=== PATIENT | male | born 1950 | race Two or more races ===

== ENCOUNTER 2024-09-04 14:17 | Outpatient (RCR) | payer OTHER, SELFPAY ==
--- NOTE | 2024-09-04 16:53 | CTCCONSULT_ITS ---
[facility] [address] [place], [place] [address] Consultation Note Date: 09/04/2024 MR#: [id number] Name: RAMON SANCHEZ : 1950 Dx: C61 Malignant neoplasm of prostate Referring physician. [facility]/MD Cortez Roy Reason for consultation. 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 History of Present Illness: Patient is 74-year-old gentleman who states that he had prostatectomy performed by Dr. Juárez in [place] 6 years ago. While told that he was cancer but no adjuvant therapy was felt to be needed. Patient had widespread bone mets at this since 2022 when bone scan of 12/01/2022 showed uptake in entire skeleton hips pelvis ribs sternum and bilateral shoulders, along with very high PSA recently patient has been followed at [facility], who reportedly felt that he merely had a TURP in [place] with no proof of malignancy. Because PSA was still very high PSA 369 on 06/21/2022, patient received monthly Lupron injections along with Xtandi. Due to insurance matter patient had referred to the cancer treatment center here in [place]. Patient states that he has some trouble sleeping alleviated with melatonin and takes OTC meds for pain, though has been prescribed hydrocodone which he does not like to take due to side effects. Past Medical History: History of anemia bladder infection chest pain diabetes kidney stones prostatism Meds Xtandi hydrocodone sertraline hydrochlorothiazide Social History: Patient lives in early marked [place] denies drinking smoking Review of Systems: Physical Exam: General: Tired appearing gentleman in no acute distress HEENT: Atraumatic normocephalic extraocular is intact no oral lesion no cervical or supraclavicular adenopathy CV: Chest clear to auscultation heart regular rate and rhythm ABD: Soft no organomegaly tenderness EXT: No cyanosis clubbing or edema. Assessment:#1. Stage IVb prostate CA with widespread bone mets. #2. Patient feels that prostate was removed which showed early stage cancer with no adjuvant therapy provided 6 years ago in [place]. [facility] note indicates this was was simply a TURP with no malignancy seen. Will attempt to get records from [place]. #3 Receiving for several months Brandon and Jeremy at [facility]. However patient can no longer go there due to insurance reasons #4. PET scan CT abdomen pelvis with new labs. #5. I will see patient again next month. Cc: Paola Steiner MD [facility] Electronically signed by: Roe Lundy MD, DABR 09/04/2024 4:50 PM
== END 2024-09-27 23:59 | disposition home or self-care (01) ==
LOC: SCTC 14:17
PROVIDERS: PCP Family Medicine; Referring Provider Family Medicine; Visit Provider Radiology Therapeutic Radiology
DX: C61 Malignant neoplasm of prostate (principal); C79.51 Secondary malignant neoplasm of bone; Z90.79 Acquired absence of other genital organ(s)
CPT/HCPCS: 99213; G0463

== ENCOUNTER 2024-09-06 18:10 | Emergency (ER) | payer OTHER, SELFPAY ==
--- NOTE | 2024-09-06 18:39 | PD.EDHA ---
ED Headache RME/HPI General Chief Complaint: Headache Stated Complaint: ONEAL X 2 weeks on left side, can't sleep Time Seen by Provider: 09/06/24 18:39 Arrival date/time: 09/06/24 18:10 RME / HPI RME / HPI Narrative: Dr. Schneider?s Main ED Evaluation: 74yo male with a history of metastatic prostate cancer on oral chemotherapy presents to the ED for a chief complaint of a headache. Patient has had gradual progressively worsening left temporal parietal headache with a throbbing component that is constant for the last 3 weeks. Patient does have nausea, but no emesis. No photo sensitivity, fever, URI symptoms, or cough. No history of similar symptoms. No changes with exertion or valsalva. Related Data Home Medications ?Medication ?Instructions ?Recorded ?Confirmed glipizide 5 mg tablet 5 mg PO QDAY 10/08/21 10/08/21 sitagliptin phosphate 50 mg tablet 50 mg PO QDAY 10/08/21 10/08/21 (Januvia) Previous Rx's ?Medication ?Instructions ?Recorded amoxicillin 500 mg-potassium 1 tab PO TID 10 days #30 tabs 09/06/24 clavulanate 125 mg tablet (Augmentin) ibuprofen 200 mg tablet (Motrin IB) 600 mg (3 x 200 mg) PO Q8H PRN 09/06/24 headache #30 tabs Allergies Allergy/AdvReac Type Severity Reaction Status Date / Time No Known Allergies Allergy Verified 09/06/24 18:14 Review of Systems Review of Systems Systems Reviewed: All systems reviewed, normal except as documented ED Exam Narrative Physical exam: GENERAL APPEARANCE: alert and oriented x 4, well-developed, well-nourished, no acute distress VITALS: All vitals were reviewed and the pulse ox is 98% on room air, which is normal according to my interpretation. HEENT: Normocephalic, atraumatic; scalp tenderness extending from the left temporal to left parietal region; pupils equal, round, reactive to light; no nystagmus, EOMI; mucous membranes pink, moist; oropharynx clear NECK: Supple LUNGS: CTABL; no wheezes, no rales, no rhonchi HEART: Regular rate, regular rhythm; normal S1, S2; no murmurs ABDOMEN: non distended; normal BS; soft, no tenderness, no guarding, no rebound; no masses, no organomegaly, no hernia BACK: no CVA tenderness EXTREMITIES: atraumatic; no edema NEUROLOGIC: awake; alert and oriented x4; cranial nerves II-XII grossly intact; no focal sensory or motor deficits; [id number] normal, normal gait PSYCHIATRIC: appropriate mood and affect SKIN: warm, dry, normal color; no rashes Course Quality Measures none Orders Category Date Time Status CT head/brain wo con Stat Exams 09/06/24 18:57 Completed CBC [CBC] Stat Lab 09/06/24 19:08 Completed CMP [Comprehensive Metabolic Panel] Stat Lab 09/06/24 19:08 Completed Urinalysis, C/S if Indicated Stat Lab 09/06/24 19:16 Completed HYDROcodone*/APAP 5/325 [Con[place] 5/325] Med 09/06/24 18:58 Discontinued 1 tab PO X1 ONE Ibuprofen Tab [Motrin Tab] Med 09/06/24 19:08 Discontinued 600 mg PO X1 ONE Metoclopramide Inj [Reglan Inj] Med 09/06/24 18:58 Discontinued 5 mg IVP X1 ONE Vital Signs Vital signs: Vital Signs Temperature 99.1 F 09/06/24 18:52 Pulse Rate 72 09/06/24 18:52 Respiratory Rate 19 09/06/24 18:52 Blood Pressure 153/72 H 09/06/24 18:52 Pulse Oximetry (%) 98 09/06/24 18:52 Oxygen Delivery Method Room Air 09/06/24 18:52 Headache MDM Narrative MDM Narrative:: Scribe Attestation: 09/06/24 Padma Elise am scribing for and in the presence of Dr. Schneider. 74yo male with a history of metastatic prostate cancer on oral chemotherapy presents to the ED for a chief complaint of a headache. Patient has had gradual progressively worsening left temporal parietal headache with a throbbing component that is constant for the last 3 weeks. Please see PE findings. CBC and CMP is essentially unremarkable. Patient treated with [place] and NSAIDs with [id number]-[id number] improvement. Remained neurologically intact. 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 Will treat patient symptomatically and refer him to his oncologist. Patient data External records reviewed:: [facility] previous records (Per chart review, patient has no previous ED visits or admissions to this facility.) Clinical information provided by:: patient Social determinants that could affect healthcare access:: none Patient has the following chronic illnesses:: metastatic prostate cancer How is presenting disease/condition affected by chronic disease/condition?: uneffected by Evaluation data The following diagnostics were reviewed and interpreted by me:: lab results and radiology exam(s) Lab and/or radiology exams considered but not ordered:: none Interpretation Summary: [facility] Report Signed Patient: RAMON SANCHEZ. Record#: [id number] Birthdate: 1950 Age/Sex: 74 / M Location: [facility] Attending Dr: Ordering Physician: Jean-Pierre Peter DO Date of Service: 09/06/24 Procedure(s): CT head/brain wo con Accession Number(s): [id number] cc: Jean-Pierre Peter DO; Paola Steiner MD; Thee Luu MD~ Examination: CT brain head without contrast. 2-D sagittal coronal reconstructions Date and time of exam:September 06, 2024, 1930 hours INDICATIONS: New onset left-sided headache beginning 2 weeks ago CTDI: vol (mGy):46.6 DLP: (mGycm):953 Technique: Multiple CT axial sections of the brain have been obtained, 5 mm slice thickness. Contrast has not been administered. 2-D sagittal, coronal reconstructions have been obtained Low dose protocols were performed. One or more of the following dose reduction techniques were used; automated exposure control, adjustment of the mA and/or KV according to patient size, use of iterative reconstruction technique. Findings: No significant ventricular enlargement. Multiple cerebral calcifications Intra-axial or extra-axial hemorrhage density is not seen. No mass effect or midline shift Basal cisterns are not remarkable. Fourth ventricle is midline. 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 Dictated By: Thee Luu MD Signed By: <Electronically signed by Thee Luu MD in [place]> 09/06/242057 Medications / Prescriptions Medications or Prescriptions considered but not ordered:: none Medication administrations:: Medication Administration History Discontinued Medications Hydrocodone Bitart/Acetaminophen (Hydrocodone/Apap 5/325 Tablet) 1 tab PO X1 ONE Stop: 09/06/24 18:59 Last Admin: 09/06/24 19:17 Dose: 1 tab Documented By: Ibuprofen (Ibuprofen Tab 600 Mg Tablet) 600 mg PO X1 ONE Stop: 09/06/24 19:09 Last Admin: 09/06/24 19:17 Dose: 600 mg Documented By: Metoclopramide HCl (Metoclopramide Inj 5 Mg/Ml Vial 2 Ml) 5 mg IVP X1 ONE; Protocol Stop: 09/06/24 18:59 Last Admin: 09/06/24 19:19 Dose: Not Given Documented By: Non-Admin Reason: Cancelled by Provider see above Consultations Consultation(s) initiated? (list below): No Diagnosis Differential diagnosis headache: migraine, tension headache, subarachnoid hemorrhage, headache and sinusitis Most likely diagnosis given after review of the tests above:: see clinical impression below Admission Indicated Admission indicated?: not indicated Admission Request Was there a request for admission?: No Disposition Plan Disposition Plan: Discharge Discharge Attestation Discharge Attestation: The patient and all family members were given an opportunity to ask questions and understood the discharge instructions. Discharge instructions specifically effects, indications for sooner follow up or return to the emergency department, and the expected course of current diagnosis. Patient condition: Stable Discharge Plan Plan Patient Disposition: HOME (Self Care) Prescriptions/Referrals Prescriptions/Med Rec: New ibuprofen [Motrin IB] 200 mg tablet 600 mg PO Q8H PRN (Reason: headache) Qty: 30 0RF Rx Instructions: Take with food amoxicillin-pot clavulanate [Augmentin] 500-125 mg tablet 1 tab PO TID 10 Days Qty: 30 0RF No Action glipizide 5 mg tablet 5 mg PO QDAY Januvia 50 mg tablet 50 mg PO QDAY Referrals: Paola Steiner MD [Primary Care Provider] - In 1 week Problem List Clinical Impression: Prostate cancer metastatic to multiple sites, Headache, Chronic ethmoidal sinusitis Patient/Caregiver Discharge Instructions Print Language: Indian Stand Alone Forms: [facility] Award Info., Patient Portal Info Letter
[2024-09-06 18:52] VITALS: BP 153/72; PULSE 72; RESP 19; TEMP 37.3; O2SAT 98
--- NOTE | 2024-09-06 18:57 | XR_ITS ---
Examination: CT brain head without contrast. 2-D sagittal coronal reconstructions Date and time of exam:September 06, 2024, 1930 hours INDICATIONS: New onset left-sided headache beginning 2 weeks ago CTDI: vol (mGy):46.6 DLP: (mGycm):953 Technique: Multiple CT axial sections of the brain have been obtained, 5 mm slice thickness. Contrast has not been administered. 2-D sagittal, coronal reconstructions have been obtained Low dose protocols were performed. One or more of the following dose reduction techniques were used; automated exposure control, adjustment of the mA and/or KV according to patient size, use of iterative reconstruction technique. Findings: No significant ventricular enlargement. Multiple cerebral calcifications Intra-axial or extra-axial hemorrhage density is not seen. No mass effect or midline shift Basal cisterns are not remarkable. Fourth ventricle is midline. 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
--- NOTE | 2024-09-06 19:09 | PC.NURSE ---
Patient states [place] is not going ot be enough. Notified provider of patient concern, New order for Ibuprofen 600mg PO x1 to be given with [place]. Pharmacy aware.
[2024-09-06] MEDS: HYDROcodone/APAP 5/325 TABLET 1 TAB PO (19:17)
[2024-09-06] MEDS: IBUPROFEN TAB 600 MG TABLET PO (19:17)
[2024-09-06 19:20] LABS: Basophils # (Auto) 0.0 Thou/mm3 (0.0-0.2); Basophils % (Auto) 0 % (0-2.5); Eosinophils # (Auto) 0.1 Thou/mm3 (0.0-0.5); Eosinophils % (Auto) 1 % (0-10); Hematocrit 29.0 % (41.0-53.0); Hemoglobin 9.3 g/dL (13.5-16.0); Immature Granulocytes Auto 0.03 Thou/mm3 (0.00-0.00); Lymphocytes # (Auto) 2.6 Thou/mm3 (1.0-4.8); Lymphocytes % (Auto) 34 % (10-50); Mean Corpuscular HGB Conc 32.1 g/dl (31.0-37.0); Mean Corpuscular Hemoglobin 29.0 pg (25.0-35.0); Mean Corpuscular Volume 90 fL (80-100); Monocytes # (Auto) 0.7 Thou/mm3 (0.0-0.8); Monocytes % (Auto) 9 % (0-12); Neutrophils # (Auto) 4.3 Thou/mm3 (1.8-7.7); Neutrophils % (Auto) 56 % (37-80); Nucleated Red Blood Cell # 0.00 Thou/mm3 (0.00-0.00); Nucleated Red Blood Cell % 0 /100 WBC (0); Platelet Count 307 Thou/mm3 (140-440); RDW Standard Deviation 68.0 fL (35.1-43.9); Red Blood Count 3.21 Miln/mm3 (4.50-5.90); White Blood Count 7.6 Thou/mm3 (3.8-10.6)
[2024-09-06 19:20] LABS: Collection Type, Urine Clean Catch
[2024-09-06 19:30] LABS: Bilirubin,Urine Negative (Negative); Blood,Urine Trace (Negative); Clarity,Urine Clear (Clear/Hazy); Color,Urine Lt-Yellow (Lt Yel-Yel); Culture Indicated,Urine Not Indicated; Glucose, Urine Negative (Negative); Ketones,Urine Negative (Negative); Leukocyte Esterase,Urine Negative (Negative); Nitrite,Urine Negative (Negative); PH,Urine 6.0 (5.0-7.0); Protein,Urine Trace (Neg - Trace); RBC,Urine 1 /hpf (0-3); Specific Gravity,Urine 1.019 (1.001-1.035); Squamous Epithelial Cell,Urine < 1 /hpf (0-5); Urobilinogen,Urine Negative mg/dL (0.0-1.0); WBC,Urine 5 /hpf (0-5)
[2024-09-06 19:44] LABS: Alanine Aminotransferase 14 U/L (10-49); Albumin, Serum 4.3 gm/dL (3.4-4.8); Albumin/Globulin Ratio 1.4 (1.2-2.2); Alkaline Phosphatase 80 U/L (46-116); Anion Gap 8 (7-16); Aspartate Amino Transferase 18 U/L (0-34); BUN/Creatinine Ratio 16 Ratio (12-20); Bilirubin,Total 0.2 mg/dL (0.3-1.2); Blood Urea Nitrogen 21 mg/dL (9-23); Calcium 8.9 mg/dL (8.3-10.6); Calcium (Corrected) 8.9 mg/dL (8.5-10.1); Carbon Dioxide 23.8 mMol/L (20.0-31.0); Chloride 110 mMol/L (98-107); Creatinine (Component) 1.3 mg/dL (0.6-1.3); Globulin 3.1 gm/dL (2.3-3.5); Glucose 161 mg/dL (74-106); Osmolality,Calculated 289 (275-295); Potassium 4.2 mMol/L (3.4-5.1); Sodium 142 mMol/L (136-145); Total Protein 7.4 gm/dL (5.7-8.2); eGFR 58 See Note
[2024-09-06 21:59] VITALS: RESP 16
== END 2024-09-06 22:00 | disposition home or self-care (01) ==
PROVIDERS: Emergency Provider Emergency Medicine; PCP Family Medicine
DX: R51.9 Headache, unspecified (principal); C61 Malignant neoplasm of prostate; J32.2 Chronic ethmoidal sinusitis
CPT/HCPCS: 36415; 70450; 80053; 81001; 85025; 99284; A9270

== ENCOUNTER → 2024-10-30 | Outpatient (CLI) | payer OTHER, SELFPAY ==
--- NOTE | 2024-10-30 12:30 | XR_ITS ---
EXAMINATION: PET/CT FUSION SKULL TO THIGH EXAM DATE AND TIME: October 30, 2024 1325 hours, comparison CT brain scan March 09, 2024, nuclear medicine bone scan December 01, 2022 INDICATIONS: Diagnosis prostate cancer CTDI:vol (mGy) 4.94 DLP: (mGycm) 450.95 PROCEDURE: 15.8 mCi FDG was administered intravenously To allow for distribution and uptake of radiotracer, the patient was allowed to rest quietly in a shielded room. Imaging was performed on an integrated 16-slice PET/CT scanner, with scanning from the skull base to the mid thigh. Serum blood glucose at the time of the injection was measured 137 mg/dL. CT scanning was performed without oral or intravenous contrast material. FINDINGS: Head and Neck: There is no jamel hypermetabolism in the neck. The visualized portions of the brain are normal in appearance on CT. Chest: Mild hypermetabolic left hilar lymphadenopathy, 10 mm Abdomen and Pelvis: There is no jamel hypermetabolism in retroperitoneal or pelvic chains. The spleen is normal in size and FDG avidity. Mild hydronephrosis Musculoskeletal: Diffuse hypermetabolic osseous metastatic disease, involving bilateral humerus, bilateral scapula, bilateral clavicles, bilateral ribs, cervical thoracic lumbar vertebral bodies, sacral segments, bilateral iliac bones IMPRESSION: 10 mm hypermetabolic left hilar lymphadenopathy Widespread hypermetabolic osseous metastatic disease
== END | disposition home or self-care (01) ==
PROVIDERS: Referring Provider Radiology Therapeutic Radiology; Visit Provider Radiology Therapeutic Radiology
DX: R59.0 Localized enlarged lymph nodes (principal); C79.9 Secondary malignant neoplasm of unspecified site; C79.51 Secondary malignant neoplasm of bone; C61 Malignant neoplasm of prostate
CPT/HCPCS: 78815; A9552

== ENCOUNTER → 2024-11-01 | Outpatient (CLI) | payer OTHER, SELFPAY ==
--- NOTE | 2024-11-01 07:00 | XR_ITS ---
Examination: MRI brain without intravenous contrast. Date and time of exam: November 01, 2024 at 0702 hours INDICATIONS: Headaches beginning several months ago Technique: Multiple axial and sagittal images of the brain obtained. Siemens high-resolution 1.5 Myrtle short bore scanners utilized. Sagittal sections, T1-weighted, TR 500, TE 14, are performed. Axial sections proton-density and T2-weighted have been obtained. Inversion recovery axial images, TR 9, 260, TE 111, TI 2500. Diffusion weighted images, axial sections, TR 4800, TE 128, B value 1000 Axial sections, ADC map, TR 4800, TE 128 Findings: Enlargement of the sella turcica is not present. The optic chiasm and infundibular are not remarkable. Prepontine and interpeduncular cisterns are not enlarged. There is no localized enlargement of the medulla or fletcher. Fourth ventricle and cerebellar tonsils appear normal in position. No subacute area of hemorrhage density is seen. Mass in the cerebellopontine angle region is not evident. Globes symmetrical. Orbital musculature including medial lateral rectus muscles do not exhibit abnormality. Diffusion-weighted images demonstrate no focus of restricted diffusion. Increased white matter signal moderate Mass effect upon the ventricular system is not identified. Impression: Negative for acute hemorrhage mass effect or midline shift No acute infarct Moderate chronic microvascular white matter change
--- NOTE | 2024-11-01 07:00 | XR_ITS ---
Examinations: MRA brain without intravenous contrast. 3-D vascular reconstructions Date and time of exam: November 01, 2024, 0702 hrs. Indications: Headaches beginning 2 months ago Technique: Multiple axial and sagittal images of the brain have been obtained MRA brain images without contrast obtained, including 3-D postprocessing, vascular maximum intensity projection images Findings: Petrous juxtasellar supraclinoid portions internal carotid arteries intact A1 segments anterior cerebral arteries Also both vessels fill with no large vessel occlusions M1 segments middle cerebral arteries middle cerebral artery trifurcation vessels demonstrate no large vessel occlusions Basilar artery posterior cerebral branches fill also with no large vessel occlusions Impression: No cerebral aneurysm dilatation depicted. No cerebral large vessel occlusions or thrombus
== END | disposition home or self-care (01) ==
PROVIDERS: PCP Physician Assistant
DX: R90.82 White matter disease, unspecified (principal)
CPT/HCPCS: 70544; 70551

== ENCOUNTER → 2024-11-06 | Outpatient (CLI) | payer OTHER, SELFPAY ==
[2024-11-06 12:09] LABS: Basophils # (Auto) 0.0 Thou/mm3 (0.0-0.2); Basophils % (Auto) 0 % (0-2.5); Eosinophils # (Auto) 0.1 Thou/mm3 (0.0-0.5); Eosinophils % (Auto) 1 % (0-10); Hematocrit 33.2 % (41.0-53.0); Hemoglobin 10.5 g/dL (13.5-16.0); Immature Granulocytes Auto 0.02 Thou/mm3 (0.00-0.00); Lymphocytes # (Auto) 1.6 Thou/mm3 (1.0-4.8); Lymphocytes % (Auto) 26 % (10-50); Mean Corpuscular HGB Conc 31.6 g/dl (31.0-37.0); Mean Corpuscular Hemoglobin 29.5 pg (25.0-35.0); Mean Corpuscular Volume 93 fL (80-100); Monocytes # (Auto) 0.5 Thou/mm3 (0.0-0.8); Monocytes % (Auto) 8 % (0-12); Neutrophils # (Auto) 4.1 Thou/mm3 (1.8-7.7); Neutrophils % (Auto) 65 % (37-80); Nucleated Red Blood Cell # 0.00 Thou/mm3 (0.00-0.00); Nucleated Red Blood Cell % 0 /100 WBC (0); Platelet Count 323 Thou/mm3 (140-440); RDW Standard Deviation 55.6 fL (35.1-43.9); Red Blood Count 3.56 Miln/mm3 (4.50-5.90); White Blood Count 6.3 Thou/mm3 (3.8-10.6)
[2024-11-06 12:29] LABS: Prostate Specific Antigen 70.09 ng/mL (0-4.00)
[2024-11-06 12:32] LABS: Alanine Aminotransferase 17 U/L (10-49); Albumin, Serum 4.1 gm/dL (3.4-4.8); Albumin/Globulin Ratio 1.5 (1.2-2.2); Alkaline Phosphatase 76 U/L (46-116); Anion Gap 10 (7-16); Aspartate Amino Transferase 23 U/L (0-34); BUN/Creatinine Ratio 14 Ratio (12-20); Bilirubin,Total 0.2 mg/dL (0.3-1.2); Blood Urea Nitrogen 26 mg/dL (9-23); Calcium 9.4 mg/dL (8.3-10.6); Calcium (Corrected) 9.4 mg/dL (8.5-10.1); Carbon Dioxide 27.6 mMol/L (20.0-31.0); Chloride 103 mMol/L (98-107); Creatinine (Component) 1.8 mg/dL (0.6-1.3); Globulin 2.7 gm/dL (2.3-3.5); Glucose 148 mg/dL (74-106); Osmolality,Calculated 288 (275-295); Potassium 5.3 mMol/L (3.4-5.1); Sodium 141 mMol/L (136-145); Total Protein 6.8 gm/dL (5.7-8.2); eGFR 39 See Note
== END | disposition home or self-care (01) ==
LOC: SCTO 11:35
PROVIDERS: PCP Family Medicine; Referring Provider Radiology Therapeutic Radiology; Visit Provider Radiology Therapeutic Radiology
DX: C61 Malignant neoplasm of prostate (principal)
CPT/HCPCS: 36415; 80053; 84153; 85025

== ENCOUNTER 2024-11-26 09:47 | Outpatient (RCR) | payer OTHER, SELFPAY ==
--- NOTE | 2024-11-13 08:44 | CTCFLWUP_ITS ---
[facility] [address] [place], [place] [address] FOLLOW-UP NOTE Date: 11/13/2024 MR#: [id number] Name: RAMON SANCHEZ : 1950 Dx: C61 Malignant neoplasm of prostate Identification. Patient with stage IVb prostate CA with bone mets. Underwent subcapsular prostatectomy performed by Dr. Juárez December 2019 revealing prostatic adenoma. Nevertheless prostate cancer strongly suspected with PSA 741 in 2022 and was placed on intermittent Lupron and Casodex. Recently patient was seen in [place] where they continue with the Lupron and Xtandi was added. Due to insurance issues they can no longer go to [facility] was referred to us in August 2024. PET scan 10/30/2024 showed diffuse hypermetabolic osseous mets disease involving bilateral humerus scapula clavicles ribs cervical thoracic vertebral body sacral segments bilateral iliac bones. There is also 10 mm hypermetabolic left hilar lymphadenopathy. Patient was prescribed Xtandi which he is still taking but has not had Lupron shots for the last 4 months. Most recent labs 11/06/2024 shows PSA to be 70. He appears to be remarkably well with no complaints of pain. A#1. Stage IVb prostate CA with widespread bone mets. A#2. While initial biopsy performed 2019 showed prostate adenoma patient has been intermittent Lupron and antiandrogens initially Casodex at [facility] and most recently Xtandi prescribed by [facility]. PSA has dropped from 741 2022 to 70 most recently 11/06/2024. A#3. Still has not seen the urologist Dr. Salazar who I referred several weeks ago. A#4. Missed appointment with Dr. Oneill last week and I rescheduled him for another A#5. Took the liberty of ordering Lupron since he is not able to go prior facility [facility], and he has missed 4 months of Lupron injections that he was getting monthly according to patient. A#6. Told patient to take Citracal twice daily. A#7. I will see him for follow-up again in 3 months. Electronically signed by: Roe Lundy M.D. 11/13/2024 8:41 AM
== END 2024-11-27 23:59 | disposition home or self-care (01) ==
LOC: SCTC 09:47
PROVIDERS: PCP Family Medicine; Referring Provider Family Medicine; Visit Provider Internal Medicine Hematology & Oncology
DX: C61 Malignant neoplasm of prostate (principal); C79.51 Secondary malignant neoplasm of bone; Z79.818 Long term (current) use of other agents affecting estrogen receptors and estrogen levels; Z90.79 Acquired absence of other genital organ(s); D64.9 Anemia, unspecified; N18.9 Chronic kidney disease, unspecified
CPT/HCPCS: 99212; 99213; G0463

== ENCOUNTER 2024-12-04 13:04 | Outpatient (RCR) | payer OTHER, SELFPAY | END 2024-12-28 23:59 | disposition home or self-care (01) | LOC: SCTC 13:04 | PROVIDERS: PCP Family Medicine; Referring Provider Family Medicine; Visit Provider Internal Medicine Hematology & Oncology | DX: Z51.11 Encounter for antineoplastic chemotherapy (principal); C61 Malignant neoplasm of prostate; C79.51 Secondary malignant neoplasm of bone; Z90.79 Acquired absence of other genital organ(s); D64.9 Anemia, unspecified; E11.22 Type 2 diabetes mellitus with diabetic chronic kidney disease; I12.9 Hypertensive chronic kidney disease with stage 1 through stage 4 chronic kidney disease, or unspecified chronic kidney disease; N18.9 Chronic kidney disease, unspecified; Z79.4 Long term (current) use of insulin | CPT/HCPCS: 96402; J9217 ==

== ENCOUNTER 2025-01-17 15:24 | Outpatient (RCR) | payer OTHER, SELFPAY ==
--- NOTE | 2025-01-21 01:25 | CTCFLWUP_ITS ---
Patient: RAMON SANCHEZ : 1950 Page 2 of 2 FOLLOW UP NOTE DATE OF SERVICE: 01/17/2025 NAME: RAMON SANCHEZ ACCOUNT: [id number] : 1950 AGE: 74 INTERVAL HISTORY: Patient is metastatic prostate cancer on Xtandi and Lupron. Patient is tolerating the treatment well. No new complaints ONCOLOGY HISTORY: DIAGNOSIS: Malignant neoplasm of prostate [ICD10] C61 DATE OF DIAGNOSIS: 2019 STAGE/TNM: Stage IV prostatic adenocarcinoma TREATMENT HISTORY: Care?Plan Start?Date Cycle Day Intent zometa?q?30?days,?q?90?days?for?bone?mets 12/20/2024 1 90 Maintenance HISTORY OF PRESENT ILLNESS: 74-year-old male with stage 4 prostate cancer with bone metastases, presented for follow-up. His history includes subcapsular prostatectomy in 2019, hypertension, diabetes, and anemia. PSA remains elevated at 70.09 despite treatment. He has been taking only one Xtandi tablet daily instead of two and is overdue for Lupron. Plan includes increasing Xtandi to 160mg daily, administering Lupron immediately, initiating Zometa infusions with dental clearance, continuing calcium and vitamin D, ordering bone density scan. OTHER MEDICAL HISTORY/CONDITIONS: PROSTATE CA WITH METS DIABETES GALLBLADDER KIDNEY STONES PROSTATECTOMY FAMILY HISTORY: Patient?denies?family?cancer?history. SOCIAL HISTORY: Occupational?History:?RETIRED/ RECYCLING Education?Level:?Completed something less than 8th grade Marital?Status:? Tobacco?Pack?per?Day:?0 Tobacco?Use?Years:?20 Tobacco?Use:?5?YRS?AGO ETOH?Use:??CLEAN?X?18?YRS Drug?Note:?DENIES Social History Note:? AND 7 GRANDCHILDREN / MEDICATIONS: 1. acetaminophen - 500 mg Capsule As directed 2. Citracal-D3 Maximum Plus - 325 mg-12.5 mcg -2.75 mg tab As directed 3. Cozaar - 100 mg Daily 4. hydrochlorothiazide - 12.5 mg Daily 5. hydroCHLOROthiazide - 12.5 mg 1 tab Daily 6. HYDROcodone-acetaminophen - 10-325 mg 1 tab As directed 7. insulin glargine - 100 unit/mL (3 mL) As directed 8. sertraline - 50 mg Daily 9. sertraline - 50 mg 1 tab Daily 10. Vitamin D2 - 1,000 unit 1 Capsule Weekly 11. Xtandi - 80 mg 2 tab Daily 12. Xtandi - 80 mg As directed Medications Last Reconciled by Marisela Steiner MD on 01/17/2025 ALLERGIES: REVIEW OF SYSTEMS: A complete 14-point review of systems was performed and is negative except as noted in interval history. PHYSICAL EXAMINATION: VITAL SIGNS: Temperature?96.9, B/P?131/75, Oxygen?Saturation?95% Weight?152?lbs PAIN: 0 - No pain ECOG Performance Status: 0 - Asymptomatic and fully active GENERAL APPEARANCE: Appears well, in no apparent distress, appropriately interactive. HEENT: Normocephalic, no temporal wasting, normal conjunctiva, no scleral icterus, normal hearing, lips without lesions, neck normal range of motion. CARDIOVASCULAR: Not assessed. PULMONARY: Normal respiratory effort, no respiratory distress or use of accessory muscles, speaking in full sentences, no tachypnea. EXTREMITIES: No pedal edema or cyanosis. SKIN: Normal skin appearance. NEUROLOGIC: Alert and oriented x4. PSHYCHIATRIC: Appropriate affect, mood normal, behavior normal, intact thought and speech. LABORATORY DATA: I have personally reviewed and interpreted each of the patient?s relevant lab tests, abnormal findings are below: Date 09/06/24 11/06/24 ??WHITE?BLOOD?COUNT?(Thou/mm3) 7.6 6.3 ??RED?BLOOD?COUNT?(Miln/mm3) 3.21?L 3.56?L ??HEMOGLOBIN?(gm/dl) 9.3?L 10.5?L ??HEMATOCRIT?(%) 29.0?L 33.2?L ??PLATELET?COUNT?(Thou/mm3) 307 323 ??NEUTROPHILS?%,?AUTO?(%) 56 65 ??LYMPH?%,?AUTO?(%) 34 26 ??NEUTROPHILS,?AUTO?(Thou/mm3) 4.3 4.1 ??GLUCOSE,RANDOM?(mg/dL) 161?H 148?H ??BLOOD?UREA?NITROGEN?(mg/dL) 21 26?H ??CREATININE?(mg/dL) 1.30 1.80?H ??SODIUM?(mmol/L) 142 141 ??POTASSIUM?(mmol/L) 4.2 5.3?H ??CHLORIDE?(mmol/L) 110?H 103 ??CrCl?(CandG)?(ml/min) 48.44 34.99 ??AST/SGOT?(Unit/L) 18 23 ??ALT/SGPT?(Unit/L) 14 17 ??ALKALINE?PHOSPHATASE?(Unit/L) 80 76 ??BILIRUBIN,?TOTAL?(mg/dL) 0.2?L 0.2?L ??PROTEIN?TOTAL?(gm/dl) 7.4 6.8 ??ALBUMIN,?SERUM?(gm/dl) 4.3 4.1 ??GLOBULIN?(gm/dl) 3.1 2.7 ??ALBUMIN/GLOBULIN?RATIO 1.4 1.5 ??CALCIUM,?SERUM?(mg/dL) 8.9 9.4 ??CALCIUM?SERUM?(CORRECTED)?(mg/dL) 8.9 9.4 ASSESSMENT/PLAN: Patient has a history of prostate cancer diagnosed in 2019 following a subcapsular prostatectomy. Initial biopsy results were inconclusive, but subsequent imaging revealed widespread bone metastases. PET scans in 2022 and 2024 showed hypermetabolic osseous disease throughout the skeleton, indicating active metastatic disease. PSA levels remain elevated at 70.09 as of 11/26/2024, despite treatment with Lupron and Xtandi. The patient's initial surgical management in 2019 was incomplete, with only partial removal of the prostate adenoma, which may have contributed to disease progression. Current symptoms include anemia (Hgb 9-10) and decreased renal function (CrCl 39). -Continue Xtandi to 160 mg daily (two 80 mg tablets or four 40 mg tablets) - Administer Lupron injection JOAO (last dose was 4 months ago, overdue) - Continue calcium and vitamin D supplementation - Initiate Zometa infusions: - Monthly for first 3 months, then every 3 months - Obtain dental clearance prior to starting - Order bone density scan - Follow up in 2 months to assess treatment response Anemia Assessment: Patient has persistent anemia with hemoglobin levels ranging from 9 to 10 g/dL for an extended period. This is likely related to his advanced prostate cancer and bone marrow involvement. Plan: - Monitor CBC Chronic Kidney Disease Assessment: Patient has decreased renal function with a creatinine clearance of 39 mL/min (normal >60 mL/min). This may be due to age-related decline, complications from prostate cancer, or treatment side effects. Plan: - Monitor renal function ORDERS: Order # Description [id number] Comprehensive Metabolic Panel - 12 + PSA + CBC with Auto Diff RETURN TO CLINIC: I reviewed the diagnosis, prognosis, and recommended treatment/procedure options with the patient (and/or their legal admitting representative), including the potential benefits, risks, side effects and alternative therapies. We also discussed the option of no treatment and the possibility of clinical trial participation, if applicable. All questions were addressed, and they demonstrated understanding. They provided informed consent to proceed with the proposed plan of care. BILLING AND COMPLIANCE: I reviewed external records from providers outside my specialty as summarized above. I spent a total of 50 minutes on this patient?s care on the day of their visit excluding time spent related to any billed procedures. This time includes time spent with the patient as well as time spent documenting in the medical record, reviewing patients records and tests, obtaining history, placing orders, communicating with other healthcare professionals, counseling the patient, family or caregiver, and/or care coordination for the diagnoses above. Electronically Signed by: Georgi Oneill MD T: 1:23 AM CC: Jacey,? PCP: Referring: Melinda Steiner This document was completed utilizing speech recognition software. Grammatical errors, random word insertions, pronoun errors, and incomplete sentences are an occasional consequence of this system due to software limitations, ambient noise, and hardware issues. Any formal questions or concerns about the content, text or information contained within the body of this dictation should be directly addressed to the provider for clarification.
== END 2025-01-27 23:59 | disposition home or self-care (01) ==
LOC: SCTC 15:24
PROVIDERS: PCP Nurse Practitioner Primary Care; Referring Provider Nurse Practitioner Primary Care; Visit Provider Internal Medicine Hematology & Oncology
DX: C61 Malignant neoplasm of prostate (principal); C79.51 Secondary malignant neoplasm of bone; Z79.818 Long term (current) use of other agents affecting estrogen receptors and estrogen levels; Z90.79 Acquired absence of other genital organ(s); D64.9 Anemia, unspecified; I12.9 Hypertensive chronic kidney disease with stage 1 through stage 4 chronic kidney disease, or unspecified chronic kidney disease; E11.22 Type 2 diabetes mellitus with diabetic chronic kidney disease; N18.9 Chronic kidney disease, unspecified; Z79.84 Long term (current) use of oral hypoglycemic drugs
CPT/HCPCS: 99212; G0463